=== PATIENT | female | born 1960 | race Caucasian/White ===

== ENCOUNTER 2021-10-30 23:20 | Inpatient (IN) | payer BC, OTHER ==
[~2021-10-30] VITALS: Ht 167.6 cm; Wt 83.9 kg
[2021-10-31 00:10] LABS: Urine Bacteria NONE SEEN /hpf (None Seen); Urine Blood Negative /uL (Negative); Urine Specific Gravity 1.019 (1.001-1.035); Urine WBC 6 /hpf (0 - 5)
[2021-10-31 01:24] LABS: Basophils # (auto) 0 10 ^3/uL (0-0.2); Basophils % (auto) 0.5 % (0.0-2.0); Eosinophils # (auto) 0.1 10 ^3/uL (0-0.8); Eosinophils % (auto) 0.9 % (0.0-7.0); Hematocrit 40.4 % (36.0-46.0); Hemoglobin 13.6 g/dL (12.2-16.2); Lymphocytes # (auto) 2.6 10 ^3/uL (0.4-5.4); Mean Corpuscular Hemoglobin 28.2 pg (28.0-32.0); Mean Corpuscular Hgb Conc. 33.7 g/dL (32.0-36.0); Mean Corpuscular Volume 83.6 fL (80.0-100.0); Monocytes # (auto) 0.5 10 ^3/uL (0-1.3); Monocytes % (auto) 6.9 % (0.0-12.0); Neutrophils % (auto) 55.7 % (37.0-80.0); Nucleated Red Blood Cells % 0.1 %; Red Blood Cells 4.84 10^6/uL (4.0-5.20); Red Cell Distribution Width 13.4 % (11.8-14.3); White Blood Cell 7.2 10^3/uL (4.4-10.8)
[2021-10-31 01:45] LABS: Albumin 3.5 g/dL (3.4-5.0); Calcium 9.2 mg/dL (8.5-10.1); Magnesium 2.4 mg/dL (1.6-2.6); Potassium 3.9 mmol/L (3.5-5.1)
[2021-10-31 01:52] LABS: Bilirubin, Total 0.6 mg/dL (0.2-1.0); Total Protein 6.9 g/dL (6.4-8.2)
[2021-10-31] MEDS ORDERED: ASPirin 325 MG TAB PO ONE (02:00)
[2021-10-31] MEDS ORDERED: ENOXAPARIN SOD 100 MG/1 ML SYRINGE SC ONE (07:00)
[2021-10-31] MEDS ORDERED: CLOPIDOGREL BISULFATE 75 MG TAB PO ONE (07:00)
[2021-10-31] MEDS ORDERED: NITROGLYCERIN 0.4 MG SL TAB SL PRN (10:45)
[2021-10-31] MEDS ORDERED: MORPHINE SULFATE INJECTION 2 MG/ML SYRG IV PRN (10:45)
[2021-10-31] MEDS ORDERED: NITROGLYCERIN 0.2MG/HR TOPICAL PATCH TD ONE ×2 (10:45→12:06)
[2021-10-31] MEDS ORDERED: cefTRIAXone 1GM/50ML D5W 50 ML IV ONE ×2 (11:00→12:04)
[2021-10-31 11:38] LABS: Cholesterol 216 mg/dL (< 200); HDL Cholesterol 54 mg/dL (40-59); LDL Cholesterol 135 mg/dL (< 100); Triglycerides 173 mg/dL (< 150)
[2021-10-31] MEDS: SOD CHL 0.45% 1,000 ML IV SCH (12:14)
[2021-10-31] MEDS ORDERED: ASPirin 81 mg TAB PO ONE (12:45)
[2021-10-31] MEDS ORDERED: METOPROLOL SUCCINATE XL 50 MG TAB PO ONE (12:45)
[2021-10-31] MEDS ORDERED: ENOXAPARIN SOD 40 MG/0.4 ML SYRINGE SC ONE (12:45)
[2021-10-31] MEDS ORDERED: HYDROcodone-ACET 5/325MG TAB PO PRN (21:15)
[2021-10-31] MEDS ORDERED: ATORVASTATIN 20 MG TAB PO SCH (22:00)
[2021-11-01] MEDS: SOD CHL 0.45% 1,000 ML IV SCH ×2 (00:20→13:43)
[2021-11-01] MEDS ORDERED: KETOROLAC TROMETH 30 MG/ML 1ML VIAL IV ONE (01:45)
[2021-11-01] MEDS ORDERED: ADENOSINE 70 MG in GIVE UN-DILUTED 0 ML IV STA (07:15)
[2021-11-01] MEDS ORDERED: cefTRIAXone 1GM/50ML D5W 50 ML IV SCH (09:00)
[2021-11-01] MEDS ORDERED: ASPirin 81 mg TAB PO SCH (10:00)
[2021-11-01] MEDS ORDERED: METOPROLOL SUCCINATE XL 50 MG TAB PO SCH (10:00)
[2021-11-01] MEDS ORDERED: PANTOPRAZOLE 40 MG/10 ML VIAL INJ IV SCH (10:00)
[2021-11-01] MEDS ORDERED: ENOXAPARIN SOD 40 MG/0.4 ML SYRINGE SC SCH (10:00)
[2021-11-01 10:18] VITALS: BP 150/99
[2021-11-01 10:19] LABS: Potassium 4.9 mmol/L (3.5-5.1)
[2021-11-01 10:23] LABS: Magnesium 2.3 mg/dL (1.6-2.6)
[2021-11-01 12:00] VITALS: BP 128/92
[2021-11-01] MEDS: PREGABALIN 25 MG CAP PO SCH ×2 (12:14→14:00)
[2021-11-01] MEDS ORDERED: ATOR20TA50 PO (16:00)
[2021-11-01] MEDS ORDERED: METO-6 PO (16:00)
[2021-11-01] MEDS ORDERED: ASPI1CHW15 PO (16:00)
== END 2021-11-01 16:00 | disposition home or self-care (01) | DRG 280 ==
LOC: ER 23:20 → EDBD 23:20 → OVERFLOW 10-31 10:43
PROVIDERS: ADMIT Registered Nurse; ATTEND Internal Medicine
DX: I47.1 Supraventricular tachycardia (principal); I21.A1 Myocardial infarction type 2; I50.33 Acute on chronic diastolic (congestive) heart failure; E66.9 Obesity, unspecified; E78.5 Hyperlipidemia, unspecified; F41.1 Generalized anxiety disorder; N18.2 Chronic kidney disease, stage 2 (mild); R73.03 Prediabetes; Z68.29 Body mass index [BMI] 29.0-29.9, adult; Z20.822 Contact with and (suspected) exposure to COVID-19
CPT/HCPCS: 36415; 71045; 78452; 80053; 80061; 81001; 83036; 83735; 83880; 84132; 84439; 84443; 84484; 85025; 93005; 93017; 93306; 96372; 99291; C9113; G0378; J0153; J0696; J1885